=== PATIENT | male | born 1965 | race Two or more races ===

== ENCOUNTER 2021-01-03 12:43 | Emergency (ER) | payer OTHER ==
[~2021-01-03] VITALS: Ht 172.7 cm; Wt 154.2 kg
[2021-01-03] MEDS ORDERED: ATORVASTATIN CA40 MG PO (13:05)
[2021-01-03] MEDS ORDERED: ATORVASTATIN CA20 MG PO (13:06)
[2021-01-03] MEDS ORDERED: ASPIRIN81 MG PO (13:07)
[2021-01-03] MEDS ORDERED: TOPROL XL100 M1 PO (13:07)
[2021-01-03] MEDS ORDERED: COZAAR100 MG PO (13:07)
[2021-01-03] MEDS ORDERED: ALLOPURINOL300 MG PO (13:07)
[2021-01-03] MEDS ORDERED: OMEGA 3 1,0001 EACH PO (13:08)
[2021-01-03] MEDS ORDERED: GLIPIZIDE ER5 MG PO (13:08)
[2021-01-03] MEDS ORDERED: NAPROXEN375 MG PO (19:48)
[2021-01-03] MEDS ORDERED: LASIX20 MG PO (19:48)
== END 2021-01-03 20:04 | disposition home or self-care (01) ==
LOC: ER 12:43
DX: I87.2 Venous insufficiency (chronic) (peripheral) (principal); R60.0 Localized edema; I51.7 Cardiomegaly